=== PATIENT | male | born 1970 | race Caucasian/White ===

== ENCOUNTER 2024-10-05 13:55 | Emergency (ER) | payer MEDICARE, MEDICAID ==
[~2024-10-05] VITALS: Ht 188 cm; Wt 77.0 kg
[2024-10-05 14:29] VITALS: BP 118/84; PULSE 81; RESP 18; TEMP 36.9; O2SAT 99
[2024-10-05 15:10] LABS: BASOPHILS % 0.7 % (0.0-2.0); EOSINOPHILS % 2.5 % (0.0-5.0); HEMATOCRIT. 43.7 % (42.0-52.0); HEMOGLOBIN. 14.2 g/dL (14.0-18.0); LYMPHOCYTES % 16.1 % (20.0-50.0); MEAN CORPUSCULAR HEMOGLOBIN 27.6 pg (28.0-32.0); MEAN CORPUSCULAR HGB CONC 32.5 g/dL (31.0-37.0); MEAN CORPUSCULAR VOLUME 84.9 fL (80.0-94.0); MEAN PLATELET VOLUME 7.7 fl (7.4-10.4); MONOCYTES % 7.3 % (2.0-8.0); NEUTROPHILS % 73.4 % (40.0-76.0); PLATELET 296 x1000/uL (130-400); RED BLOOD CELL COUNT 5.15 mill/uL (4.7-6.1); RED CELL DISTRIBUTION WIDTH 15.5 % (11.6-14.6); WHITE BLOOD COUNT 6.6 x1000/uL (4.5-11.0)
[2024-10-05 15:15] LABS: CHLORIDE 106 mEq/L (98-107); SODIUM 139 mEq/L (136-145)
[2024-10-05 15:16] LABS: CARBON DIOXIDE 25 mEq/L (21-32)
[2024-10-05 15:17] LABS: CALCIUM 9.3 mg/dL (8.7-10.4)
[2024-10-05 15:21] LABS: CREATININE 0.7 mg/dL (0.6-1.3); GLUCOSE 87 mg/dL (70-105)
[2024-10-05 15:22] LABS: UREA NITROGEN BLOOD 20 mg/dL (9-23)
== END 2024-10-05 15:50 | disposition home or self-care (01) ==
LOC: ER 13:55
DX: F19.10 Other psychoactive substance abuse, uncomplicated (principal)
CPT/HCPCS: 36415; 80048; 85025; 99283

== ENCOUNTER 2024-10-15 13:06 | Emergency (ER) | payer MEDICARE, MEDICAID ==
[~2024-10-15] VITALS: Ht 177.8 cm; Wt 77.0 kg
[2024-10-15 13:18] VITALS: O2SAT 98
[2024-10-15 14:06] LABS: BASOPHILS % 0.4 % (0.0-2.0); EOSINOPHILS % 2.2 % (0.0-5.0); HEMATOCRIT. 39.4 % (42.0-52.0); HEMOGLOBIN. 13.1 g/dL (14.0-18.0); LYMPHOCYTES % 16.8 % (20.0-50.0); MEAN CORPUSCULAR HEMOGLOBIN 28.1 pg (28.0-32.0); MEAN CORPUSCULAR HGB CONC 33.2 g/dL (31.0-37.0); MEAN CORPUSCULAR VOLUME 84.7 fL (80.0-94.0); MEAN PLATELET VOLUME 8.4 fl (7.4-10.4); MONOCYTES % 7.8 % (2.0-8.0); NEUTROPHILS % 72.8 % (40.0-76.0); PLATELET 231 x1000/uL (130-400); RED BLOOD CELL COUNT 4.65 mill/uL (4.7-6.1); RED CELL DISTRIBUTION WIDTH 15.4 % (11.6-14.6); WHITE BLOOD COUNT 7.5 x1000/uL (4.5-11.0)
[2024-10-15 14:13] LABS: CHLORIDE 105 mEq/L (98-107); POTASSIUM 4.6 mEq/L (3.5-5.1); SODIUM 141 mEq/L (136-145)
[2024-10-15 14:15] LABS: CARBON DIOXIDE 31 mEq/L (21-32)
[2024-10-15 14:20] LABS: CREATININE 0.8 mg/dL (0.6-1.3)
[2024-10-15 14:21] LABS: ETHANOL BLOOD < 10 mg/dL (<10); GLUCOSE 94 mg/dL (70-105); UREA NITROGEN BLOOD 19 mg/dL (9-23)
[2024-10-15 14:22] LABS: ALANINE AMINOTRANSFERASE 11 IU/L (10-49); ALBUMIN 3.8 g/dL (3.2-4.8); ASPARTATE AMINOTRANSFERASE 13 IU/L (<34)
[2024-10-15 14:23] LABS: BILIRUBIN DIRECT 0.2 mg/dL (<=3.0)
[2024-10-15 14:24] LABS: BILIRUBIN TOTAL 0.5 mg/dL (0.1-1.0); PROTEIN TOTAL 6.5 g/dL (6.0-8.3)
[2024-10-15 14:25] LABS: INR 1.1; PROTHROMBIN TIME 11.4 sec (9.6-11.0)
[2024-10-15 14:46] LABS: TROPONIN I HIGH SENSITIVITY < 4 ng/L (3.0-53)
[2024-10-15 17:01] VITALS: BP 102/65; PULSE 82; RESP 15; TEMP 37.1; O2SAT 97
== END 2024-10-15 17:00 | disposition home or self-care (01) ==
LOC: ER 13:06
DX: R53.1 Weakness (principal); Z88.6 Allergy status to analgesic agent; Z88.8 Allergy status to other drugs, medicaments and biological substances
CPT/HCPCS: 36415; 71045; 80048; 80076; 80320; 84484; 85025; 93005; 99285; G0480

== ENCOUNTER 2024-10-17 21:28 | Emergency (ER) | payer MEDICARE, MEDICAID ==
[~2024-10-17] VITALS: Ht 188 cm; Wt 90.7 kg
[2024-10-17 21:34] VITALS: O2SAT 98
[2024-10-17 21:59] VITALS: TEMP 36.8; O2SAT 98
[2024-10-18 00:05] VITALS: BP 142/103; PULSE 110; RESP 16
[2024-10-18] MEDS: KETOROLAC 15MG/ML VIAL IM ONE (00:05)
== END 2024-10-18 02:55 | disposition home or self-care (01) ==
LOC: ER 21:28
DX: Z13.89 Encounter for screening for other disorder (principal); Z59.00 Homelessness unspecified
CPT/HCPCS: 99283; 96372; J1885